=== PATIENT | female | born 2000 | race Caucasian/White ===

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

== ENCOUNTER → 2021-02-25 12:50 | Outpatient (BNVA) | payer OTHER, MEDICAID, SELFPAY | PROVIDERS: PCP Pediatrics; Visit Provider Advanced Practice Midwife | DX: Z30.8 Encounter for other contraceptive management (principal) | CPT/HCPCS: J1050 ==

== ENCOUNTER → 2021-05-15 09:10 | Outpatient (BNVA) | payer OTHER, MEDICAID, SELFPAY | PROVIDERS: PCP Pediatrics; Visit Provider Advanced Practice Midwife ==

== ENCOUNTER → 2021-06-23 13:33 | Outpatient (BNVA) | payer OTHER, MEDICAID, SELFPAY | PROVIDERS: PCP Pediatrics; Visit Provider Advanced Practice Midwife ==

== ENCOUNTER → 2021-07-31 10:43 | Outpatient (BNVA) | payer OTHER, MEDICAID, SELFPAY | PROVIDERS: PCP Pediatrics; Visit Provider Advanced Practice Midwife ==

== ENCOUNTER 2021-10-26 10:23 | Outpatient (REF) | payer OTHER, MEDICAID, SELFPAY ==
[2021-10-26 16:07] LABS: CT PCR NOT DETECTED (Not Detect.); NG PCR NOT DETECTED (Not Detect.)
== END 2021-10-26 10:24 | disposition home or self-care (01) ==
LOC: HO.LAB 10:23
PROVIDERS: PCP Pediatrics; Visit Provider Advanced Practice Midwife
DX: R21 Rash and other nonspecific skin eruption (principal); Z20.2 Contact with and (suspected) exposure to infections with a predominantly sexual mode of transmission
CPT/HCPCS: 87491; 87591

== ENCOUNTER → 2022-01-15 14:41 | Outpatient (BNVA) | payer OTHER, MEDICAID, SELFPAY | PROVIDERS: PCP Pediatrics; Visit Provider Advanced Practice Midwife | DX: Z30.42 Encounter for surveillance of injectable contraceptive (principal) | CPT/HCPCS: 96372 ==

== ENCOUNTER → 2022-04-09 14:44 | Outpatient (BNVA) | payer OTHER, MEDICAID, SELFPAY | PROVIDERS: PCP Pediatrics; Visit Provider Advanced Practice Midwife | DX: Z30.42 Encounter for surveillance of injectable contraceptive (principal) | CPT/HCPCS: 96372 ==

== ENCOUNTER → 2022-07-06 10:52 | Outpatient (BNVA) | payer OTHER, MEDICAID, SELFPAY | PROVIDERS: PCP Pediatrics; Visit Provider Advanced Practice Midwife | DX: Z30.42 Encounter for surveillance of injectable contraceptive (principal) | CPT/HCPCS: 96372 ==

== ENCOUNTER → 2022-09-29 14:52 | Outpatient (BNVA) | payer OTHER, MEDICAID, SELFPAY | PROVIDERS: PCP Pediatrics; Visit Provider Advanced Practice Midwife | DX: Z30.42 Encounter for surveillance of injectable contraceptive (principal) | CPT/HCPCS: 96372 ==

== ENCOUNTER 2022-12-21 11:06 | Outpatient (REF) | payer OTHER, MEDICAID, SELFPAY | END 2022-12-21 11:07 | disposition home or self-care (01) | LOC: HO.LNP 11:06 | PROVIDERS: PCP Pediatrics; Visit Provider Advanced Practice Midwife | DX: Z30.42 Encounter for surveillance of injectable contraceptive (principal) | CPT/HCPCS: 88142; 96372 ==

== ENCOUNTER 2022-12-21 11:33 | Outpatient (REF) | payer OTHER, MEDICAID, SELFPAY ==
[2022-12-21 17:33] LABS: CT PCR NOT DETECTED (Not Detect.); NG PCR NOT DETECTED (Not Detect.)
[2022-12-22 08:12] LABS: Syphilis Screen Nonreactive (Nonreactive)
[2022-12-22 08:43] LABS: HBc Num1 0.04 S/CO (0.00-0.79); HIV AB/AG Nonreactive (Nonreactive); HIV Num 1 0.06 S/CO (0.00-0.99); Hepatitis B Core Antibody Nonreactive (Nonreactive); ~HepC Num1 0.06 S/CO (0.00-0.79); ~Hepatitis C Antibody Nonreactive (Nonreactive)
[2022-12-22 11:32] LABS: BV Int Neg Control Negative (Negative); BV Int Pos Control Positive (Positive)
== END 2022-12-21 11:34 | disposition home or self-care (01) ==
LOC: HO.LAB 11:33
PROVIDERS: Visit Provider Advanced Practice Midwife
DX: Z11.3 Encounter for screening for infections with a predominantly sexual mode of transmission (principal); Z11.4 Encounter for screening for human immunodeficiency virus [HIV]; R10.2 Pelvic and perineal pain; Z20.2 Contact with and (suspected) exposure to infections with a predominantly sexual mode of transmission
CPT/HCPCS: 0353U; 86704; 86780; 86803; 87389; 87480; 87510; 87660

== ENCOUNTER 2023-01-11 13:41 | Outpatient (REF) | payer OTHER, MEDICAID, SELFPAY ==
--- NOTE | ~2023-01-11 | US_ITS ---
EXAMINATION: US PELVIS CLINICAL INFORMATION: Abdominal pain; the last menstrual period is not specified. COMPARISON: None TECHNIQUE: Ultrasound of the pelvis is performed using both transabdominal and transvaginal transducers along with Doppler. Transvaginal imaging is performed due to inadequate visualization transabdominally. FINDINGS: Uterus: The uterus is retroverted and measures 5.1 x 1.9 x 3.4 cm. The double wall endometrial thickness is 0.4 mm. The uterus is smooth in contour and has normal myometrial echogenicity. No visible fibroid. Adnexa: Both ovaries are visualized. There is normal color flow to the adnexa. There is no ovarian torsion. Multiple small peripheral bilateral ovarian follicles are seen, right greater than left. Some on the right have a string of pearls arrangement. There is no pelvic ascites or fluid collection. Right ovary measures 2.3 x 1.5 x 2.0 cm, volume 3.6 mL. Left ovary measures 2.1 x 1.7 x 1.7 cm, volume 3.2 mL. US/US pelvic and transvaginal IMPRESSION: Multiple small peripheral follicles are seen within the ovaries, right greater than left. The possibility of polycystic ovary syndrome is raised. This is not pathognomonic radiologic appearance, and clinical correlation is recommended. The examination is otherwise unremarkable.
== END 2023-01-11 13:42 | disposition home or self-care (01) ==
LOC: HO.US 13:41
PROVIDERS: Visit Provider Advanced Practice Midwife
DX: R10.9 Unspecified abdominal pain (principal)
CPT/HCPCS: 76830; 76856

== ENCOUNTER → 2023-03-08 14:24 | Outpatient (BNVA) | payer OTHER, MEDICAID, SELFPAY | PROVIDERS: PCP Pediatrics; Visit Provider Advanced Practice Midwife | DX: Z71.2 Person consulting for explanation of examination or test findings (principal); Z30.42 Encounter for surveillance of injectable contraceptive; N94.10 Unspecified dyspareunia | CPT/HCPCS: 96372 ==

== ENCOUNTER → 2023-06-03 14:39 | Outpatient (BNVA) | payer OTHER, MEDICAID, SELFPAY | PROVIDERS: PCP Pediatrics; Visit Provider Advanced Practice Midwife | DX: Z30.42 Encounter for surveillance of injectable contraceptive (principal) | CPT/HCPCS: 96372 ==

== ENCOUNTER 2023-08-24 13:55 | Outpatient (AMB) | payer OTHER, MEDICAID, SELFPAY ==
[2023-08-24 14:11] VITALS: BMI 35.6
--- NOTE | 2023-08-24 14:11 | AM.OFFVISNUR ---
Intake Vital Signs 08/24/23 14:11 Height 5 ft 1 in Weight 85.445 kg BMI 35.6 Intake Visit Reasons: DEPO Allergies No Known Allergies Allergy (Verified 03/08/23 14:28) Nursing Note Gabbie is here today for her scheduled Depo-Provera INJ. Pt had some spotting in early June but has resolved. Follow up in 12 wks and in Nov for her AG. Office Procedures Depo Questionnaire If YES to any of the following questions, please consult a provider. Date of last injection: 06/03/23 Date of last menstrual period: 07/01/23 Date of last gynecology exam: 12/21/22 Menstrual pattern since last injection has been: Light Irregular bleeding?: Yes (spotted for a few weeks.) Breast lumps or other breast changes?: No Changes in weight or appetite?: No Depression or changes in mood?: No Abnormal hair growth or loss?: No Skin problems (rash, acne, discoloration)?: No Pain at the injection site?: No Headaches?: No Nervousness?: No Abdominal pain or cramping?: No Dizziness or nausea?: No Fatigue or weakness?: No Decrease in sexual drive?: No Chest pain or shortness of breath?: No Swelling in arms or legs?: No Form completed by?: Osman Mcclellan LPN Office Meds Depo-Provera 150 mg/mL intramuscular syringe Performing Provider: Tammy Roca CNM Performing Location: [facility] Administered by: Graciela Mcclellan LPN on 08/24/23 14:12 Dose Route Admin Location Dispensed Lot Number Expiration Date [facility] [employer] 150 mg IM left deltoid 1 mL [id number] 09/27/25 62632-958-97 [facility] Coding Level of Care Code Established Pt Est Pt Level 1 (57821) Patient Type Established History Problem Focused Exam Problem Focused Medical Decision Making Straight Forward Time Spent (min) 15 Assessment & Plan Assessment & Plan Orders: Orders AMB Medroxyprogesterone Injection Patient Supplied Today Z30.42 - Encounter for surveillance of injectable contraceptive
== END 2023-08-24 14:53 | disposition home or self-care (01) ==
PROVIDERS: PCP Pediatrics; Visit Provider Advanced Practice Midwife
DX: Z30.42 Encounter for surveillance of injectable contraceptive (principal)

== ENCOUNTER → 2023-08-24 13:55 | Outpatient (BNVA) | payer OTHER, MEDICAID, SELFPAY | PROVIDERS: PCP Pediatrics; Visit Provider Advanced Practice Midwife | DX: Z30.46 Encounter for surveillance of implantable subdermal contraceptive (principal) | CPT/HCPCS: 96372; 99211; J1050 ==

== ENCOUNTER 2023-11-16 14:02 | Outpatient (AMB) | payer OTHER, MEDICAID, SELFPAY ==
--- OUTSIDE RECORDS SUMMARY | 2023-11-16 14:03 | XMS_ITS | Continuity of Care Document ---
Author Name Unknown Organization [facility] Address [address], [address] Floor, [address] [place] [id number]- Care Team Providers Care Film Or Tape Librarian Name Role Phone Radha VALDEZ, Dg Primary Care Physician [id number] Date(s): 02/25/23 - 04/03/23 [facility] [address], 3[address] Floor, [address] [place] [id number] Attending Physician: Not on Staff, Attending MD Referring Physician: Radha VALDEZ, Dg Allergies, Adverse Reactions, Alerts No Known Allergies Medications omeprazole 10 mg oral enteric coated capsule 1 capsule = 10 mg, By Mouth, Daily, # 14 capsule, 0 Refills, Maintenance, 02/25/17 11:37:56, EC Capsule Start Date: 02/25/17 Stop Date: 03/11/17 Status: Ordered Temovate 0.05% topical cream 1 application, Topically, 2 times a day, # 15 Gm, 0 Refills, Maintenance, 02/13/18 14:39:09, Cream Start Date: 02/13/18 Status: Ordered traZODone 50 mg oral tablet 100 mg, 2, tablet, By Mouth, Daily at bedtime, # 60 tablet, Refills 0, Tot. Refills 0, Maintenance,11/18/16 14:38:26, Route to Pharmacy Electronically, [id number], [facility]/pharmacy #[id number] Start Date: 11/18/16 Stop Date: 12/18/16 Status: Ordered Vistaril pamoate 25 mg oral capsule 1 capsule = 25 mg, By Mouth, 4 times a day, PRN for anxiety, # 40 capsule, 0 Refills, Maintenance, 02/13/18 14:39:32, Capsule Start Date: 02/13/18 Status: Ordered Problem List Condition Confirmation Course Effective Dates Status Health St [facility] Informant Chest pain Confirmed Active Social History Social History Type Response Smoking Status Never smoker; Tobacc o user in household: No entered on: 02/05/15 Sex Patient Care team information Care Team Personnel Name: Radha VALDEZ, Dg Position: Reference Physician Member Role: PCP Address: Address: [address] [facility] [address] Care Team Related Persons Name: PK ALEXANDER Address: [address] [place] [address] Name: SCAR CUEVAS Address: [address] [place] [address] Name: SCAR OSHEA
--- OUTSIDE RECORDS SUMMARY | 2023-11-16 14:03 | XMS_ITS | Continuity of Care Document ---
Author Name Unknown Organization [facility] Address [address] [facility], 3r d Floor, [address] [place] [id number]- Care Team Providers Care Behavior Support Specialist Name Role Phone Radha VALDEZ, Dg Primary Care Physician [phone] Encounter [facility] Date(s): 03/04/23 - 04/03/23 [facility] [address] [place], [address] Floor, [address] [place] [id number] Attending Physician: Nestor Lau Admitting Physician: AdmNestor sarah Referring Physician: Admtr ArSajan Allergies, Adverse Reactions, Alerts No Known Allergies [...] 0, Maintenance,11/18/16 14:38:26, Route to Pharmacy Electronically, [id number], [facility]/pharmacy #[id number] Start Date: 11/18/16 Stop Date: 12/18/16 [...] PCP Address: Address: [address] [facility] [place] [address]- Care Team Related Persons Name: PK ALEXANDER Address: home [address] [place] [address] Name: SCAR CUEVAS Address: [address] [place] [address] Name: SCAR OSHEA
--- OUTSIDE RECORDS SUMMARY | 2023-11-16 14:03 | XMS_ITS | Continuity of Care Document ---
Author Name Unknown Organization [facility] Address [address] [facility], 3[address] Floor, [address] [place] [id number]- Care Team Providers Care Ventilated Rib Fitter Name Role Phone Radha VALDEZ, Dg Primary Care Physician Encounter [facility] Date(s): 02/24/23 - 03/26/23 [facility] [address] [place], [address] Floor, [address] [place] [id number] Allergies, Adverse Reactions, Alerts No Known Allergies [...] 0, Maintenance,11/18/16 14:38:26, Route to Pharmacy Electronically, [id number], [facility]/pharmacy #[id number] Start Date: 11/18/16 Stop Date: [...] PCP Address: Address: [address] [place] [address]- Care Team Related Persons Name: PK ALEXANDER Address: [place] [address] Name: SCAR CUEVAS Address: home [address] [place] [address] Name: SCAR OSHEA
[2023-11-16 14:26] VITALS: BMI 36.3
--- NOTE | 2023-11-16 14:26 | AM.OFFVISNUR ---
Intake Vital Signs 11/16/23 14:26 Height 5 ft 1 in Weight 192 lb 2 oz BMI 36.3 Intake Visit Reasons: DEPO Intake Note: Pt is here for scheduled Depo Provera injection. Facing Grinder Required: No Allergies No Known Allergies Allergy (Verified 03/08/23 14:28) Is last menstrual period known: No Post menopausal: No Patient : No Nursing Note Pt is doing well with Depo injections. Today she reports some minimal bilateral breast tenderness without lumps, skin changes or any other c/o. She does admit to taking increased caffeine and is trying to cut back. She was advised to monitor the tenderness and if this becomes worse, she feels a lump or other skin changes to the breast skin or any other symptoms she should contact her provider for an evaluation. Pt verbalizes understanding and she has upcoming AG scheduled 12/28/23. She was advised to mention the tenderness to her provider as well. Pt tolerated injection well and has no further questions. She will schedule her next Depo injection in 12 weeks. Pt verbalizes understanding and agrees with plan. No further questions. Office Procedures Depo Questionnaire If YES to any of the following questions, please consult a provider. Date of last injection: 08/24/23 Date of last gynecology exam: 12/21/21 Menstrual pattern since last injection has been: Not Applicable Irregular bleeding?: No Breast lumps or other breast changes?: Yes Changes in weight or appetite?: No Depression or changes in mood?: No Abnormal hair growth or loss?: No Skin problems (rash, acne, discoloration)?: No Pain at the injection site?: No Headaches?: No Nervousness?: No Abdominal pain or cramping?: No Dizziness or nausea?: No Fatigue or weakness?: No Decrease in sexual drive?: No Chest pain or shortness of breath?: No Swelling in arms or legs?: No Any other problems or concerns?: Pt reports 3 day h/o jacinto. breast tender. Pt admits to taking inc. caffeine Form completed by?: Christina Moura Office Meds Depo-Provera 150 mg/mL intramuscular syringe Performing Provider: Tammy Roca CNM Performing Location: [facility] Administered by: Christina Moura on 11/16/23 14:34 Dose Route Admin Location Dispensed Lot Number Expiration Date [facility] [employer] Supervisor 150 mg IM left deltoid 1 mL [id number] 02/25/26 64741-045-74 [facility] Coding Level of Care Code Established Pt Est Pt Level 1 (15842) Patient Type Established History Problem Focused Medical Decision Making Straight Forward Time Spent (min) 15 Assessment & Plan Assessment & Plan Orders: Orders AMB Medroxyprogesterone Injection Patient Supplied Today Z30.42 - Encounter for surveillance of injectable contraceptive
== END 2023-11-16 14:47 | disposition home or self-care (01) ==
LOC: HO.HWS 14:02
PROVIDERS: PCP Pediatrics; Visit Provider Advanced Practice Midwife
DX: Z30.42 Encounter for surveillance of injectable contraceptive (principal)

== ENCOUNTER → 2023-11-16 14:02 | Outpatient (BNVA) | payer OTHER, MEDICAID, SELFPAY | PROVIDERS: PCP Pediatrics; Visit Provider Advanced Practice Midwife | DX: Z30.42 Encounter for surveillance of injectable contraceptive (principal) | CPT/HCPCS: 96372; 99211; J1050 ==

== ENCOUNTER 2023-12-28 14:55 | Outpatient (REF) | payer OTHER, SELFPAY ==
[2023-12-29 11:43] LABS: CT PCR NOT DETECTED (Not Detect.); NG PCR NOT DETECTED (Not Detect.)
[2023-12-29 14:08] LABS: BV Int Neg Control Negative (Negative); BV Int Pos Control Positive (Positive)
== END 2023-12-28 14:56 | disposition home or self-care (01) ==
LOC: HO.LAB 14:55
PROVIDERS: PCP Pediatrics; Visit Provider Advanced Practice Midwife
DX: Z01.419 Encounter for gynecological examination (general) (routine) without abnormal findings (principal); Z20.2 Contact with and (suspected) exposure to infections with a predominantly sexual mode of transmission
CPT/HCPCS: 0353U; 87480; 87510; 87660

== ENCOUNTER 2023-12-28 14:55 | Outpatient (AMB) | payer OTHER, MEDICAID, SELFPAY ==
--- NOTE | 2023-12-28 14:56 | A.OFFVIS_ITS ---
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 She has not currently sexually active because she broke up with her boyfriend of 6 years in October. She is open to STI testing with the vaginal exam. She has not actually too worried about STIs. She is on Depo-Provera and she would like to stay on Depo-Provera and she does not think that she would actually like to ever have children. 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 She lives with her family and tries to walk a lot at work and dance with her siblings at home. [facility] Medical History No active medical problems Surgical History History of hernia surgery Family History Maternal Grandmother Asthma Mother Asthma Sister Asthma Social History Household Members: Family Housing: House Alcohol intake: never Patient Tobacco Use Status: Never used Tobacco Patient : No Sexual orientation: Straight/Heterosexual Gender identity: Female Female Reproductive History Menstrual Age of Menarche: 13 Duration of menses: other control method: pills Total pregnancies: 0 Full term: 0 Date of last pap smear: 12/21/22 (negative) History of abnormal pap smear: No Physical Exam Vital Signs: Last Vital Signs BP 120/70 12/28/23 15:28 BMI result Body Mass Index 35.9 Const General: healthy appearing, comfortable, no acute distress, well developed and alert Nutritional Appearance: average body habitus and obese Orientation/consciousness: patient oriented x3 Limitations: no limitations HEENT Head: Yes normocephalic Neck Neck: Yes normal visual inspection Thyroid: Thyroid normal Chest Chest palpation & inspection: normal inspection of the chest Breast/axilla inspection: normal inspection of the breasts and normal inspection of the axillae Breast/axilla palpation: normal palpation of the breasts and normal palpation of the axillae Resp Effort & Inspection: normal respiratory effort GI Inspection: Yes normal to inspection, No Abdominal wall edema and No distended Palpation (GI): Soft to palpation and nontender Other: External exam within normal limits cervix is tiny nulliparous pink smooth closed uterus is slightly difficult to palpate secondary to adipose and probable midposition. Adnexa nontender good tone with Kegel cervix slightly friable with Q-tips. General: Yes bladder normal to palpation External Female Exam: normal external appearance and normal appearance of the urethra Speculum Exam - Vagina: normal appearance of the vagina, normal palpation and normal vaginal discharge Speculum Exam - Cervix: normal appearance of the cervix, normal palpation and nontender Bimanual exam- vagina & uterus: normal bimanual exam, normal palpation, uterine size normal, bladder normal to palpation, consistency normal, normal palpation, uterine mobility normal, uterine shape normal, No Cervical tenderness present, non-tender and no cervical motion tenderness Bimanual Exam- Adnexa, other: normal adnexae, no masses, normal and No adnexal tenderness Neuro General: patient oriented x3 Assessment & Plan Assessment & Plan (1) Surveillance for Depo-Provera contraception: Code(s): Z30.42 - Encounter for surveillance of injectable contraceptive (2) Well woman exam with routine gynecological exam: Code(s): Z01.419 - Encounter for gynecological examination (general) (routine) without abnormal findings (3) Cervical cancer screening: Code(s): Z12.4 - Encounter for screening for malignant neoplasm of cervix (4) Encounter for screening examination for sexually transmitted disease: Code(s): Z11.3 - Encounter for screening for infections with a predominantly sexual mode of transmission (5) control counseling: Code(s): Z30.09 - Encounter for other general counseling and advice on contraception Plan -----Discussed in this visit the following: healthy balanced diet, regular and consistent exercise, getting recommended health screens, doing the best she can for her particular health concerns, kegel exercises, pap smear screening and followup recommendations, mammography screening and SBE, normal changes in cycles in her life stage--- .----I reviewed available options for Control Methods and their associated side effect profiles. In particular, we discussed the method most of interest to her. She is going to stay on the Depo she likes having a reliable method of control she does not think she wants to have kids. Also discussed the possible use of a Kyleena as a more long-term method of control that would afford her the same option however without the weight gain side effect. She says she is going to think about it and I did suggest that because her cervix is so small and nulliparous she would absolutely need a pre insertion dose of misoprostol vaginally , that I would recommend would be inserted at least 6-8 hours ahead of time. If she decides that she wants it I would recommend she call the office and talked with the nurses and I wrote down that she would need the misoprostol on a piece of paper for her and she would pass that message to the nurses and then I could send in a prescription for the misoprostol. Alternatively waiting for a menstrual. Would be a perfect time but there has no telling when that would happen because she has been on Depo 1st quite some time now. Offered blood work for STIs but she had it done last year and she really does not think that she was put it any risk of an STI in the past year. Testing for gonorrhea chlamydia trichomoniasis Pamela Gardnerella was done per routine and . Discussed the challenges of surviving a break-up and switching ones energy to taking care of oneself but recommend working on choosing healthier foods and weight loss in the coming year if at all possible she is aware that she eats for comfort so she will work on it when she is able. Depo-Provera refilled for 1 year Q 12 weeks and she has her next appointment scheduled already, Orders: Orders CT NG by PCR Today Z01.419 - Encounter for gynecological examination (general) (routine) without abnormal findings Bacterial Vaginosis Panel Today Z20.2 - Contact with and (suspected) exposure to infections with a predominantly sexual mode of transmission Medications: Changed From medroxyprogesterone 150 mg IM [id number] 84 days 1 mL 4RF To medroxyprogesterone 150 mg IM Q12W 84 days 1 mL 4RF Coding Level of Care Code Est Pt Prev Care 18-39y(76132) Diagnoses Surveillance for Depo-Provera contraception Z30.42 Well woman exam with routine gynecological exam Z01.419 Cervical cancer screening Z12.4 Encounter for screening examination for sexually transmitted disease Z11.3 control counseling Z30.09
[2023-12-28 15:28] VITALS: BP 120/70; BMI 35.9
== END 2023-12-28 16:28 | disposition home or self-care (01) ==
LOC: HO.HWSM 14:55
PROVIDERS: PCP Pediatrics; Visit Provider Advanced Practice Midwife
DX: Z30.42 Encounter for surveillance of injectable contraceptive (principal); Z01.419 Encounter for gynecological examination (general) (routine) without abnormal findings; Z12.4 Encounter for screening for malignant neoplasm of cervix; Z11.3 Encounter for screening for infections with a predominantly sexual mode of transmission; Z30.09 Encounter for other general counseling and advice on contraception
CPT/HCPCS: 99395

== ENCOUNTER 2024-02-08 14:22 | Outpatient (AMB) | payer OTHER, MEDICAID, SELFPAY ==
--- NOTE | 2024-02-08 14:58 | AM.OFFVISNUR ---
Intake Vital Signs 02/08/24 15:00 Height 5 ft 1 in Weight 83.461 kg BMI 34.8 Intake Visit Reasons: DEPO Allergies No Known Allergies Allergy (Verified 12/28/23 14:56) Nursing Note Little is here today for her scheduled Depo-Provera inj. Office Procedures Depo Questionnaire If YES to any of the following questions, please consult a provider. Date of last injection: 11/16/23 Date of last menstrual period: 12/30/23 Date of last gynecology exam: 12/28/23 Menstrual pattern since last injection has been: Light Irregular bleeding?: No Breast lumps or other breast changes?: No Changes in weight or appetite?: No Depression or changes in mood?: No Abnormal hair growth or loss?: No Skin problems (rash, acne, discoloration)?: No Pain at the injection site?: No Headaches?: No Nervousness?: No Abdominal pain or cramping?: No Dizziness or nausea?: No Fatigue or weakness?: No Decrease in sexual drive?: No Chest pain or shortness of breath?: No Swelling in arms or legs?: No Form completed by?: Osman Mcclellan LPN Office Meds Depo-Provera 150 mg/mL intramuscular syringe Performing Provider: Maritza Sanchez CNM Performing Location: [facility] Administered by: Graciela Mcclellan LPN on 02/08/24 14:00 Dose Route Admin Location Dispensed Lot Number Expiration Date [facility] [employer] 150 mg IM left deltoid 1 mL [id number] 02/25/26 45496-785-60 [facility] Coding Assessment & Plan Assessment & Plan Orders: Orders AMB Medroxyprogesterone Injection Patient Supplied Today Z30.42 - Encounter for surveillance of injectable contraceptive
[2024-02-08 15:00] VITALS: BMI 34.8
== END 2024-02-08 14:33 | disposition home or self-care (01) ==
LOC: HO.HWS 14:22
PROVIDERS: PCP Pediatrics; Visit Provider Advanced Practice Midwife
DX: Z30.42 Encounter for surveillance of injectable contraceptive (principal)

== ENCOUNTER → 2024-02-08 14:22 | Outpatient (BNVA) | payer OTHER, MEDICAID, SELFPAY | PROVIDERS: PCP Pediatrics; Visit Provider Advanced Practice Midwife | DX: Z30.42 Encounter for surveillance of injectable contraceptive (principal) | CPT/HCPCS: 96372; J1050 ==

== ENCOUNTER 2024-05-02 14:16 | Outpatient (AMB) | payer OTHER, MEDICAID, SELFPAY ==
[2024-05-02 14:28] VITALS: BMI 35.9
--- NOTE | 2024-05-02 14:28 | AM.OFFVISNUR ---
Intake Vital Signs 05/02/24 14:28 Height 5 ft 1 in Weight 86.211 kg BMI 35.9 Intake Visit Reasons: depo Allergies No Known Allergies Allergy (Verified 12/28/23 14:56) Nursing Note Goldie is here for her Depo-Provera INJ. She reports bleeding in Dec and February, that lasted 5-6 days. She denies any vaginal bleeding since.She is also concerned about increase in her appetite and weight gain. She was scheduled to see today for T.L. consult, but MD was called out on an Emergency. Pt will r/s her appt with Dr Salmon, for consult and schedule her next inj. Office Procedures Depo Questionnaire If YES to any of the following questions, please consult a provider. Date of last injection: 02/07/24 Date of last menstrual period: 03/13/24 Date of last gynecology exam: 12/28/23 Menstrual pattern since last injection has been: Normal Irregular bleeding?: Yes (Had menses in Dec then again in February.) Breast lumps or other breast changes?: No Changes in weight or appetite?: Yes (weight gain and increase in appetite) Depression or changes in mood?: No Abnormal hair growth or loss?: No Skin problems (rash, acne, discoloration)?: No Pain at the injection site?: No Headaches?: No Nervousness?: No Abdominal pain or cramping?: No Dizziness or nausea?: No Fatigue or weakness?: No Decrease in sexual drive?: No Chest pain or shortness of breath?: No Swelling in arms or legs?: No Form completed by?: Osman Mcclellan LPN Office Meds Depo-Provera 150 mg/mL intramuscular syringe Performing Provider: Maritza Sanchez CNM Performing Location: [facility] [place] [facility] Administered by: Graciela Mcclellan LPN on 05/02/24 14:29 Dose Route Admin Location Dispensed Lot Number Expiration Date [facility] [employer] 150 mg IM left deltoid 1 mL [id number] 04/27/27 84759-657-03 [facility] Coding Level of Care Code Established Pt Est Pt Level 1 (70827) Patient Type Established History Problem Focused Exam Problem Focused Medical Decision Making Straight Forward Time Spent (min) 25 Assessment & Plan Assessment & Plan Orders: Orders AMB Medroxyprogesterone Injection Patient Supplied Today Z30.42 - Encounter for surveillance of injectable contraceptive Medications: New Depo-Provera (medroxyprogesterone) 150 mg IM ONCE 1 mL 0RF NS Z30.42 - Encounter for surveillance of injectable contraceptive
== END 2024-05-02 14:49 | disposition home or self-care (01) ==
PROVIDERS: PCP Pediatrics; Visit Provider Advanced Practice Midwife
DX: Z30.42 Encounter for surveillance of injectable contraceptive (principal)

== ENCOUNTER → 2024-05-02 14:16 | Outpatient (BNVA) | payer OTHER, MEDICAID, SELFPAY | PROVIDERS: PCP Pediatrics; Visit Provider Advanced Practice Midwife | DX: Z30.42 Encounter for surveillance of injectable contraceptive (principal) | CPT/HCPCS: 96372; 99211; J1050 ==

== ENCOUNTER 2024-08-01 13:41 | Outpatient (AMB) | payer OTHER, MEDICAID, SELFPAY ==
[2024-08-01 13:55] VITALS: BMI 37.4
--- NOTE | 2024-08-01 13:55 | AM.OFFVISNUR ---
Vital Signs 08/01/24 13:55 Height 5 ft 1 in Weight 89.868 kg BMI 37.4 Intake Visit Reasons: Depo Allergies No Known Allergies Allergy (Verified 12/28/23 14:56) Nursing Note Goldie is here today for her Scheduled Depo-Provera inj. She is c/o increase in appetite and weight gain. Pt states ''i have changed my eating habits, and have started to exercise. Pt is unsure if she wants to continue with the Depo-Provera. Pt advised that if she is thinking of another form of contraception, to schedule an appt for a control consult. Pt verbs understanding. Office Procedures Depo Questionnaire If YES to any of the following questions, please consult a provider. Date of last injection: 05/02/24 Date of last menstrual period: 07/23/24 Date of last gynecology exam: 12/28/23 Menstrual pattern since last injection has been: Light Irregular bleeding?: Yes (spotting after 2nd month) Breast lumps or other breast changes?: No Changes in weight or appetite?: Yes (increase in appetite and weight gain.) Depression or changes in mood?: No Abnormal hair growth or loss?: No Skin problems (rash, acne, discoloration)?: No Pain at the injection site?: No Headaches?: No Nervousness?: No Abdominal pain or cramping?: No Dizziness or nausea?: No Fatigue or weakness?: No Decrease in sexual drive?: No Chest pain or shortness of breath?: No Swelling in arms or legs?: No Any other problems or concerns?: increased appetite and weight. Form completed by?: Manohar Mcclellan LPN Office Meds Depo-Provera 150 mg/mL intramuscular syringe Performing Provider: Maritza Sanchez CNM Performing Location: [facility] [place] [facility] Administered by: Graciela Mcclellan LPN on 08/01/24 13:56 Dose Route Admin Location Dispensed Lot Number Expiration Date FORMERLY NAMED [facility] Product Controller 150 mg IM rt. deltoid 1 mL [id number] 06/27/27 35312-518-60 [employer] Assessment & Plan Assessment & Plan Orders: Orders AMB Medroxyprogesterone Injection Patient Supplied Today Maritza Sanchez CNM Z30.42 - Encounter for surveillance of injectable contraceptive Medications: New Depo-Provera (medroxyprogesterone) 150 mg IM ONCE 1 mL 0RF NS Shiraz Salmon MD Z30.42 - Encounter for surveillance of injectable contraceptive
== END 2024-08-01 14:04 | disposition home or self-care (01) ==
PROVIDERS: PCP Pediatrics; Visit Provider Obstetrics & Gynecology
DX: Z30.42 Encounter for surveillance of injectable contraceptive (principal)

== ENCOUNTER → 2024-08-01 13:41 | Outpatient (BNVA) | payer OTHER, MEDICAID, SELFPAY | PROVIDERS: PCP Pediatrics; Visit Provider Obstetrics & Gynecology | DX: Z30.42 Encounter for surveillance of injectable contraceptive (principal) | CPT/HCPCS: 96372; 99211; J1050 ==

== ENCOUNTER 2024-12-19 12:49 | Outpatient (REF) | payer OTHER, MEDICAID, SELFPAY ==
--- OUTSIDE RECORDS SUMMARY | 2024-12-19 15:29 | XMS_ITS | Clinical Summary ---
Author Organization [employer] [facility] Address [address] [place] [address] Care Team Providers Care Supervisor Gelatin Plant Name Role Phone Dg Garcia MD Primary Care Provider [phone] Surgical History Surgery Date Site/Laterality Comments HERNIA REPAIR 5m of age PROCEDURE: HISTORICAL HERNIA REPAIR/UMB; COMMENT: had 2 hernias Medical History Medical History Date Comments Vitiligo TFTs nl - DX:Vitiligo; COM MENT: [place] Eczema DX:Eczema; COMME NT: HC prn Strabismus [...] tacft Heart attack Father's side pat uncle FONG a t 40y/o Heart attack Maternal Grandfather [...] age to complete this topic Care Teams Supervisor Gelatin Plant Relationship Specialty Start Date End Date Dg Garcia MD PCP - General Internal Medicine 06/03/22
[2024-12-20 07:56] LABS: Syphilis Screen Nonreactive (Nonreactive)
[2024-12-20 08:00] LABS: HBsAGNum1 0.36 S/CO (0.00-0.99); HIV AB/AG Nonreactive (Nonreactive); HIV Num 1 0.05 S/CO (0.00-0.99); Hepatitis B Surface Antigen Negative (Negative); ~HepC Num1 0.11 S/CO (0.00-0.79); ~Hepatitis C Antibody Nonreactive (Nonreactive)
== END 2024-12-19 12:50 | disposition home or self-care (01) ==
LOC: HO.LAB 12:49
PROVIDERS: PCP Pediatrics; Visit Provider Advanced Practice Midwife
DX: N89.8 Other specified noninflammatory disorders of vagina (principal); Z30.09 Encounter for other general counseling and advice on contraception; Z11.3 Encounter for screening for infections with a predominantly sexual mode of transmission
CPT/HCPCS: 36415; 86780; 86803; 87340; 87389

== ENCOUNTER 2024-12-19 12:49 | Outpatient (AMB) | payer OTHER, MEDICAID, SELFPAY ==
[2024-12-19 12:52] VITALS: BP 118/72; BMI 37.4
--- NOTE | 2024-12-19 12:52 | A.OFFVIS_ITS ---
Vital Signs 12/19/24 12:52 Height 5 ft 1 in Weight 198 lb BMI 37.4 BP 118/72 Intake Visit Reasons: Vag discomfort Demand Planning Manager Required: No Demand Planning Manager Services: Demand Planning Manager Present Information Interpreted: clinical only Career Consultant: Career Consultant Present Allergies No Known Allergies Allergy (Verified 12/19/24 12:58) Medication List - Last Reconciled 12/19/24 by Maritza Sanchez CNM No Known Home Meds Is last menstrual period known: Yes Last menstrual period: 12/05/24 HPI HPI Vag discomfort: Details: Patient has had an feeling labia with a little itching and a little bit of white discharge for a few days. No recent antibiotics she had been sexually active in the last few months but is uncertain if that relationship we will continue you are not she is not interested in different form of control at the moment she has been using condoms though there was not occasion where she did not she stopped Depo-Provera in September. She thought her periods were starting come back and she had a period in October on November 22 and then she has a another period As she called it on December 05. [facility] Medical History No active medical problems Surgical History History of hernia surgery Family History Maternal Grandmother Asthma Mother Asthma Sister Asthma Social History Household Members: Family Housing: House Alcohol intake: never Patient Tobacco Use Status: Never used Tobacco Sexual orientation: Straight/Heterosexual Gender identity: Female Female Reproductive History Menstrual Age of Menarche: 13 Duration of menses: 3-5 days Date of last menstrual period: 12/05/24 control method: none Total pregnancies: 0 Date of last pap smear: 12/21/22 (negative) Physical Exam Vital Signs: Last Vital Signs BP 118/72 12/19/24 12:52 BMI result Body Mass Index 37.4 Other: Vagina and vaginal mucosa and cervix are slightly bright pink there is a scant white discharge that could be yeast and there is some clear mucus beginning to emit from her cervix consistent with pending ovulation. External Female Exam: normal external appearance and normal appearance of the urethra Speculum Exam - Vagina: normal appearance of the vagina and normal vaginal discharge Speculum Exam - Cervix: normal appearance of the cervix and Cervical os closed Assessment & Plan Assessment & Plan (1) Encounter for screening examination for sexually transmitted disease: Code(s): Z11.3 - Encounter for screening for infections with a predominantly sexual mode of transmission Category: Medical (2) control counseling: Code(s): Z30.09 - Encounter for other general counseling and advice on contraception Category: Medical (3) Vaginal itching: Code(s): N89.8 - Other specified noninflammatory disorders of vagina Category: Medical Plan Teaching done about yeast in terms of contributing factors and it has ever pre sence on skin in in vagina is and that it flourishes under certain conditions. Discussed various treatments and advantages disadvantages and she accepted prescription for cream instructed that she can use it for as many days as she has some symptoms of vaginal itching burning plus perhaps in the additional day just to be sure. Testing done for STIs as well and testing offered for blood work for STIs which she accepted. In addition discussed the menstrual cycle and what is normal and the normal changes that occur throughout the cycle in terms of ovulation and timing and signs of it and symptoms that most women experience along with these changes in their cycle. Discussed in particular changes in energy level libido breast changes etc.. She found this very in lightening and said it makes such sense and it helps explain symptoms she has had. She is not interested in another method of control now but I did the teaching about ovulation to give her some added information for herself about avoiding when she does not wish to be and I also encouraged 100% condom use. We will be seeing her for an annual exam soon. Discussed keeping track of all her symptoms not just the day.. Also discussed working towards being as close to normal BMI as possible Script sent for Monistat cream with refills and I also offered her plan B which she accepted.. Timeframe/Date Comment labs rtc for annual as scheduled Orders: Orders CT NG by PCR Today N89.8 - Other specified noninflammatory disorders of vagina, Z20.2 - Contact with and (suspected) exposure to infections with a predominantly sexual mode of transmission Bacterial Vaginosis Panel Today N89.8 - Other specified noninflammatory disorders of vagina Syphilis Screen Today N89.8 - Other specified noninflammatory disorders of vagina, Z11.3 - Encounter for screening for infections with a predominantly sexual mode of transmission, Z30.09 - Encounter for other general counseling and advice on contraception Hepatitis B Surface Antigen Today N89.8 - Other specified noninflammatory disorders of vagina, Z11.3 - Encounter for screening for infections with a predominantly sexual mode of transmission, Z30.09 - Encounter for other general counseling and advice on contraception Hepatitis C Antibody Today N89.8 - Other specified noninflammatory disorders of vagina, Z11.3 - Encounter for screening for infections with a predominantly sexual mode of transmission, Z30.09 - Encounter for other general counseling and advice on contraception HIV Ab/Ag Today N89.8 - Other specified noninflammatory disorders of vagina, Z11.3 - Encounter for screening for infections with a predominantly sexual mode of transmission, Z30.09 - Encounter for other general counseling and advice on contraception Medications: New miconazole nitrate 2% (Miconazole-7) Daily up to 7 days for yeast infection. 1 appful vaginal BEDTIME 7 days 45 grams 2RF levonorgestrel (Plan B One-Step) 1.5 mg PO ONCE 1 tab 4RF Coding Level of Care Code Est Pt Level 3 (40414) Diagnoses Encounter for screening examination for sexually transmitted disease Z11.3 control counseling Z30. Vaginal itching N89.8
--- OUTSIDE RECORDS SUMMARY | 2024-12-19 14:38 | XMS_ITS | Clinical Summary ---
Author Organization [employer] [facility] Address [address] [place] [address] Care Team Providers Care Voltmeter Operator Name Role Phone Dg Garcia MD Primary Care Provider [phone] Surgical History Surgery Date Site/Laterality Comments HERNIA REPAIR 5m of age PROCEDURE: HISTORICAL HERNIA REPAIR/UMB; COMMENT: had 2 hernias Medical History Medical History Date Comments Vitiligo TFTs nl - DX:Vitiligo; COM MENT: seen derm in [place] Eczema DX:Eczema; COMME NT: HC prn Strabismus DX:Strabismus; C OMMENT: mechanical Sleep disturbance DX:Sleep distu rbance; COMMENT: melatonin 5mg po in past now - on clonidine 0.1mg q HS Dysmenorrhea 11-09 DX:Dysmenorrhea Speech delay DX:Speech delay; COMMENT: speech therapy x 4y/o Obesity 09/11/2014 DX:Obesity Hyperlipidemia 02/10/2015 DX:Hyperlipidemi a Behavior problem 03/25/2015 DX:Behavior pro blem Anxiety and depression 03/25/2015 DX:Anxiet y and depression; COMMENT: 05-12 ref to [facility] for therapy via [facility] 10/12 2 Weeks ago Crisis called from school having suicidal thoughts. In private reports that lost 2 Uncles that she was very closed to, 2 years ago, since then feeling very sad. 12/17/15 mood better seen therapist. 11/16/16 12/01/16 admitted to partial depression, MILEY/panic attacks, self cutting behavior. Vistaril, trazodone* Left knee pain 05/15/2019 DX:Left knee karin n; COMMENT: 05/07/2019 [facility]: Knee pain for 2 months no injury, patellofemoral syndrome, home exercise and PT follow-up as needed Chest pain 02/21/2018 DX:Chest pain; C OMMENT: 01/26/18 Ref to Cardiology. 02/13/18 EKG NL. Myopia with astigmatism 05/23/2017 DX:Myopi a with astigmatism Difficulty sleeping 03/25/2015 DX:Difficult y sleeping Family History Medical History Relation Name Comments No Known Problems Father not in con tacft Heart attack Father's side pat uncle FNOG a t 40y/o Heart attack Maternal Grandfather Thyroid disease Maternal Grandmother asth ma, deag Glaucoma Mother asthma, postpar lamin depression Other: Other Mother's side 1 mat aunt bip olar Asthma Mother's side 2 mat uncles Cataracts Other Asthma Sister 1 Other: ovarian torsion at Sister 2 Blindness Neg Hx Macular degeneration Neg Hx Strabismus Neg Hx Relation Name Status Comments Father Alive emely iversona Father's side Maternal Grandfather Maternal Grandmother Alive Mother Alive michael ponce Mother's side 1 Mother's side 2 Other Paternal Grandfather not in contact Paternal Grandmother not in contact Sister 1 Alive nabila Clark Sister 2 Alive audi saavedragos Social History Tobacco Use Types Packs/Day Years Used Date Smoking Tobacco: Never Smokeless Tobacco: Never Alcohol Use Standard Drinks/Week Comments Yes 0 (1 standard drink = 0.6 oz pur e alcohol) Sex and Gender Information Value Date Recorded Sex Assigned at Not on file Gender Identity Not on file Sexual Orientation Not on file Obstetrics History Last Filed Vital Signs Vital Sign Reading Time Taken Comments Blood Pressure 116/68 09/27/2024 11:55 AM EDT Pulse 100 02/24/2023 1:36 PM EDT auto cuff Temperature - - Respiratory Rate - - Oxygen Saturation - - Inhaled Oxygen Concentration - - Weight 89.4 kg (197 lb) 09/27/2024 11:55 AM EDT Height 156 cm (5' 1.42 ) 02/15/2023 10:07 AM EDT Body Mass Index 36.72 02/15/2023 10:07 AM EDT Plan of Treatment Health Maintenance Due Date Last Done Comments Gonorrhea/Chlamydia Screening 2001 Cervical Cancer Screening: Pap Smear 2022 Cholesterol Screening (Lipid Panel) 10/31/2022 Depression Screening 10/31/2022 HIV Screening 10/31/2022 Hepatitis C Screening 10/31/2022 Social Influencers of Health Screening 10/31/2022 COVID-19 Vaccine (2023- season) 2024 DTaP,Tdap,and Td Vaccines (8 - Td or Tdap) 09/27/2034 09/27/2024, 09/17/2014, 10/20/2005, Additional history exists Hepatitis B Vaccines Completed 04/17/2002, 01/09/2002, 2001 HIB Vaccines Completed 12/04/2002, 03/29, 02/13/2002, Additional history exists Pneumococcal Vaccine: Pediatrics (0 to 5 Years) and At-Risk Patients (6 to 64 Years) Completed 04/09/2003, 04/17/2002, 02/13/2002, Additional history exists IPV Vaccines Completed 10/20/2005, 02/2003, 12/04/2002, Additional history exists MMR Vaccines Completed 10/20/2005, 11/13/2002 Varicella Vaccines Completed 04/05/2008, 11/13/2002 Hepatitis A Vaccines Completed 12/19/2012, 01/28/20 11 HPV Vaccines Completed 04/14/2015, 10/29, 09/17/2014 Meningococcal ACWY Vaccine Completed 09/12/2018, Influenza Vaccine Completed 09/11/2024, , 09/01/2018, Additional history exists RSV Immunization Patients Under 20 months Aged Out No longer eligible based on patient's age to complete this topic Care Teams Voltmeter Operator Relationship Specialty Start Date End Date Dg Garcia MD PCP - General Internal Medicine 06/03/22
== END 2024-12-19 13:53 | disposition home or self-care (01) ==
PROVIDERS: PCP Pediatrics; Visit Provider Advanced Practice Midwife
DX: Z30.09 Encounter for other general counseling and advice on contraception (principal); N89.8 Other specified noninflammatory disorders of vagina
CPT/HCPCS: 99213

== ENCOUNTER 2024-12-19 13:39 | Outpatient (REF) | payer OTHER, MEDICAID, SELFPAY ==
--- OUTSIDE RECORDS SUMMARY | 2024-12-19 15:51 | XMS_ITS | Clinical Summary ---
Author Organization [employer] [facility] Address [address] [place] [address] Care Team Providers Care Sack Filler Name Role Phone Dg Garcia MD Primary Care Provider [phone] Surgical History Surgery Date Site/Laterality Comments HERNIA REPAIR 5m of age PROCEDURE: HISTORICAL HERNIA REPAIR/UMB; COMMENT: had 2 hernias Medical History Medical History Date Comments Vitiligo TFTs nl - DX:Vitiligo; COM MENT: seen derm in [place] Eczema DX:Eczema; COMME NT: HC prn Strabismus [...] age to complete this topic Care Teams Sack Filler Relationship Specialty Start Date End Date Dg Garcia MD PCP - General Internal Medicine 06/03/22
[2024-12-20 20:51] LABS: Bacterial Vaginosis PCR POSITIVE (Negative); Candida Group PCR DETECTED (Not Detect); Candida glab krusei PCR NOT DETECTED (Not Detect); Trichomonas vaginalis PCR NOT DETECTED (Not Detect)
[2024-12-21 15:45] LABS: CT PCR NOT DETECTED (Not Detect.); NG PCR NOT DETECTED (Not Detect.)
== END 2024-12-19 13:40 | disposition home or self-care (01) ==
LOC: HO.HHCL 13:39
PROVIDERS: Visit Provider Advanced Practice Midwife
DX: N89.8 Other specified noninflammatory disorders of vagina (principal); Z20.2 Contact with and (suspected) exposure to infections with a predominantly sexual mode of transmission
CPT/HCPCS: 81515; 87491; 87591